=== PATIENT | female | born 1955 | race Caucasian/White ===

== ENCOUNTER → 2017-01-28 | Outpatient (CLI) | payer MEDICARE, OTHER ==
[2017-01-28 10:48] LABS: BUN/CREATININE RATIO 17 (0-10)
== END ==
LOC: LAB 09:09
PROVIDERS: Emergency Medicine
DX: E11.9 Type 2 diabetes mellitus without complications (principal); E78.2 Mixed hyperlipidemia; H65.192 Other acute nonsuppurative otitis media, left ear; J20.9 Acute bronchitis, unspecified; I25.10 Atherosclerotic heart disease of native coronary artery without angina pectoris; Z79.899 Other long term (current) drug therapy
CPT/HCPCS: 36415; 80053; 80061; 82043; 82248; 82570; 83036; 83704

== ENCOUNTER → 2017-02-26 | Outpatient (CLI) | payer MEDICARE, OTHER | LOC: EMI 13:00 | DX: M54.5 Low back pain (principal); M51.36 Other intervertebral disc degeneration, lumbar region; Z91.041 Radiographic dye allergy status; Z79.899 Other long term (current) drug therapy; Z79.82 Long term (current) use of aspirin | CPT/HCPCS: 72148 ==

== ENCOUNTER → 2020-11-17 | Outpatient (CLI) | payer MEDICARE, OTHER ==
[~2020-11-17] MED LIST: ASPIRIN EC81 MG PO; AZOR 10-40 MG1 EACH PO; BASAGLAR K100 UNIT/1 SQ; BENTYL 10MG CAP10 MG PO; BRILINTA60 MG PO; CARAFATE1 GM PO; CYCLOBENZAPRINE10 MG PO; ECOTRIN81 MG PO; FLONASE 0.05% N16 GM; GLUCOTROL 10 MG10 MG PO; METOPROLOL TART25 MG PO; PERCOCET 10-321 EACH PO; POTASSIUM CHLO10 ME1 PO; PREGABALIN200 MG PO; PROAIR HFA8.5 GM INH; PROTONIX40 MG PO; RANEXA500 MG PO; VICTOZA 1818 MG/3 ML SQ; XIFAXAN200 MG PO; XYZAL5 MG PO; ZOFRAN ODT4 MG PO
== END ==
LOC: HEART 5 11-16 08:45
DX: R07.9 Chest pain, unspecified (principal)
CPT/HCPCS: 78452; A9502; J2785

== ENCOUNTER → 2021-02-28 | Outpatient (CLI) | payer MEDICARE, OTHER ==
[2021-02-28 15:43] LABS: HEMOGLOBIN 12.8 gm/dl (12.3-15.3); RED BLOOD COUNT 4.52 M/UL (4.00-5.10); WHITE BLOOD COUNT 9.9 K/UL (4.5-11.0)
[2021-02-28 16:17] LABS: BUN/CREATININE RATIO 14 (0-10)
== END ==
LOC: LAB 15:01
PROVIDERS: Nurse Practitioner
DX: M13.842 Other specified arthritis, left hand (principal); N30.01 Acute cystitis with hematuria; R30.0 Dysuria; R35.0 Frequency of micturition; M19.042 Primary osteoarthritis, left hand
CPT/HCPCS: 73130; 80053; 85025

== ENCOUNTER → 2021-03-16 | Outpatient (CLI) | payer MEDICARE, OTHER ==
[2021-03-16 13:05] LABS: HEMOGLOBIN 13.9 gm/dl (12.3-15.3); RED BLOOD COUNT 4.84 M/UL (4.00-5.10); WHITE BLOOD COUNT 7.3 K/UL (4.5-11.0)
[2021-03-16 13:25] LABS: BUN/CREATININE RATIO 21 (0-10)
[2021-03-17 10:14] LABS: CREATININE, URINE 31.5 mg/dL (Not Estab.)
[2021-03-17 17:09] LABS: CHOLESTEROL, TOTAL 223 mg/dL (100-199); HDL SIZE 8.6 nm (>=9.2); HDL-C 37 mg/dL (>39); HDL-P (TOTAL) 28.2 umol/L (>=30.5); LARGE HDL-P 2.8 umol/L (>=4.8); LARGE VLDL-P 12.2 nmol/L (<=2.7); LDL SIZE 20.6 nm (>20.5); LDL SIZE 20.6 nm (>=20.8); LDL-C 144 mg/dL (0-99); LDL-P 1800 nmol/L (<1000); LP-IR SCORE 84 (<=45); SMALL LDL-P 1049 nmol/L (<=527); TRIGLYCERIDES 233 mg/dL (0-149); VLDL SIZE 53.2 nm (<=46.6)
[2021-03-22 18:12] LABS: 25-HYDROXY, VITAMIN D-2 2.8 ng/mL (.)
== END ==
LOC: LAB 11:17
PROVIDERS: Emergency Medicine
DX: E11.649 Type 2 diabetes mellitus with hypoglycemia without coma (principal); I10 Essential (primary) hypertension; E55.9 Vitamin D deficiency, unspecified; N17.8 Other acute kidney failure; E11.69 Type 2 diabetes mellitus with other specified complication; E11.42 Type 2 diabetes mellitus with diabetic polyneuropathy; R19.7 Diarrhea, unspecified
CPT/HCPCS: 36415; 80053; 80061; 82043; 82306; 82570; 83036; 83704; 84443; 84550; 85025

== ENCOUNTER 2021-05-10 20:00 | Inpatient (IN) | payer MEDICARE, OTHER ==
[~2021-05-10] VITALS: Ht 167.6 cm; Wt 99.8 kg
[~2021-05-10 20:00] MED LIST changes: -ASPIRIN EC81 MG PO; -AZOR 10-40 MG1 EACH PO; -BASAGLAR K100 UNIT/1 SQ; -BRILINTA60 MG PO; -CYCLOBENZAPRINE10 MG PO; -ECOTRIN81 MG PO; -FLONASE 0.05% N16 GM; -GLUCOTROL 10 MG10 MG PO; -METOPROLOL TART25 MG PO; -PERCOCET 10-321 EACH PO; -POTASSIUM CHLO10 ME1 PO; -PREGABALIN200 MG PO; -PROAIR HFA8.5 GM INH; -PROTONIX40 MG PO; -RANEXA500 MG PO; -VICTOZA 1818 MG/3 ML SQ; -XYZAL5 MG PO
[2021-05-10 21:40] LABS: HEMOGLOBIN 14.8 gm/dl (12.3-15.3); RED BLOOD COUNT 5.05 M/UL (4.00-5.10); WHITE BLOOD COUNT 14.1 K/UL (4.5-11.0)
[2021-05-10 22:08] LABS: BUN/CREATININE RATIO 24 (0-10)
[2021-05-11 02:36] LABS: HEMOGLOBIN 14.2 gm/dl (12.3-15.3); RED BLOOD COUNT 4.84 M/UL (4.00-5.10)
[2021-05-11 02:38] LABS: WHITE BLOOD COUNT 18.1 K/UL (4.5-11.0)
[2021-05-11 03:48] LABS: BUN/CREATININE RATIO 24 (0-10)
[2021-05-11] MEDS ORDERED: FLONASE 0.05% N16 GM (11:22)
[2021-05-11] MEDS ORDERED: VICTOZA 1818 MG/3 ML SQ (11:23)
[2021-05-11] MEDS ORDERED: ECOTRIN81 MG PO (11:26)
[2021-05-11] MEDS ORDERED: PROAIR HFA8.5 GM INH (11:26)
[2021-05-11] MEDS ORDERED: XYZAL5 MG PO (11:27)
[2021-05-11] MEDS ORDERED: PROTONIX40 MG PO (11:28)
[2021-05-11] MEDS ORDERED: RANEXA500 MG PO (11:28)
[2021-05-11] MEDS ORDERED: METOPROLOL TART25 MG PO (11:29)
[2021-05-11] MEDS ORDERED: BRILINTA60 MG PO (11:30)
[2021-05-11] MEDS ORDERED: POTASSIUM CHLO10 ME1 PO (11:30)
[2021-05-11] MEDS ORDERED: PERCOCET 10-321 EACH PO (11:31)
[2021-05-11] MEDS ORDERED: GLUCOTROL 10 MG10 MG PO (11:33)
[2021-05-11] MEDS ORDERED: PREGABALIN200 MG PO (11:35)
[2021-05-11] MEDS ORDERED: BASAGLAR K100 UNIT/1 SQ (11:35)
[2021-05-11] MEDS ORDERED: CYCLOBENZAPRINE10 MG PO (11:36)
[2021-05-11] MEDS ORDERED: ASPIRIN EC81 MG PO (11:37)
[2021-05-11] MEDS ORDERED: AZOR 10-40 MG1 EACH PO (11:46)
[2021-05-12 03:11] LABS: HEMOGLOBIN 12.7 gm/dl (12.3-15.3); RED BLOOD COUNT 4.38 M/UL (4.00-5.10); WHITE BLOOD COUNT 14.3 K/UL (4.5-11.0)
[2021-05-12 03:44] LABS: BUN/CREATININE RATIO 40 (0-10)
[2021-05-13 03:37] LABS: HEMOGLOBIN 13.4 gm/dl (12.3-15.3); RED BLOOD COUNT 4.66 M/UL (4.00-5.10); WHITE BLOOD COUNT 17.8 K/UL (4.5-11.0)
[2021-05-13 04:04] LABS: BUN/CREATININE RATIO 36 (0-10)
[2021-05-14 03:20] LABS: HEMOGLOBIN 13.6 gm/dl (12.3-15.3); RED BLOOD COUNT 4.66 M/UL (4.00-5.10); WHITE BLOOD COUNT 18.6 K/UL (4.5-11.0)
[2021-05-14 04:10] LABS: BUN/CREATININE RATIO 26 (0-10)
[2021-05-15 03:01] LABS: HEMOGLOBIN 13.3 gm/dl (12.3-15.3); RED BLOOD COUNT 4.54 M/UL (4.00-5.10); WHITE BLOOD COUNT 18.2 K/UL (4.5-11.0)
[2021-05-15 03:23] LABS: BUN/CREATININE RATIO 23 (0-10)
[2021-05-17 02:43] LABS: HEMOGLOBIN 12.8 gm/dl (12.3-15.3); RED BLOOD COUNT 4.54 M/UL (4.00-5.10); WHITE BLOOD COUNT 15.2 K/UL (4.5-11.0)
[2021-05-17 03:01] LABS: BUN/CREATININE RATIO 28 (0-10)
[2021-05-18 02:41] LABS: HEMOGLOBIN 13.5 gm/dl (12.3-15.3); RED BLOOD COUNT 4.63 M/UL (4.00-5.10); WHITE BLOOD COUNT 14.9 K/UL (4.5-11.0)
[2021-05-18 03:47] LABS: BUN/CREATININE RATIO 28 (0-10)
[2021-05-19 05:17] LABS: RED BLOOD COUNT 4.47 M/UL (4.00-5.10); WHITE BLOOD COUNT 18.2 K/UL (4.5-11.0)
[2021-05-19 06:00] LABS: BUN/CREATININE RATIO 35 (0-10)
[2021-05-20 03:06] LABS: HEMOGLOBIN 13.2 gm/dl (12.3-15.3); RED BLOOD COUNT 4.54 M/UL (4.00-5.10)
[2021-05-20 03:30] LABS: BUN/CREATININE RATIO 37 (0-10)
[2021-05-20 04:23] LABS: WHITE BLOOD COUNT 18.6 K/UL (4.5-11.0)
[2021-05-21 03:56] LABS: HEMOGLOBIN 13.8 gm/dl (12.3-15.3); RED BLOOD COUNT 4.79 M/UL (4.00-5.10)
[2021-05-21 05:52] LABS: BUN/CREATININE RATIO 40 (0-10)
[2021-05-22 02:37] LABS: HEMOGLOBIN 15.2 gm/dl (12.3-15.3); RED BLOOD COUNT 5.14 M/UL (4.00-5.10); WHITE BLOOD COUNT 23.2 K/UL (4.5-11.0)
[2021-05-22 03:02] LABS: BUN/CREATININE RATIO 36 (0-10)
[2021-05-23 04:24] LABS: RED BLOOD COUNT 4.82 M/UL (4.00-5.10); WHITE BLOOD COUNT 19.4 K/UL (4.5-11.0)
[2021-05-23 04:35] LABS: BUN/CREATININE RATIO 37 (0-10)
[2021-05-25 14:29] LABS: ORGANISM ID Not indicated. (.); SPECIMEN SOURCE Urine (.)
[2021-05-26 02:41] LABS: HEMOGLOBIN 13.1 gm/dl (12.3-15.3); RED BLOOD COUNT 4.49 M/UL (4.00-5.10); WHITE BLOOD COUNT 14.7 K/UL (4.5-11.0)
[2021-05-26 03:21] LABS: BUN/CREATININE RATIO 31 (0-10)
[2021-05-27 13:19] LABS: STREPTOCOCCUS PNEUMONIAE AG Positive (Negative)
[2021-05-29 03:56] LABS: HEMOGLOBIN 12.8 gm/dl (12.3-15.3); RED BLOOD COUNT 4.36 M/UL (4.00-5.10); WHITE BLOOD COUNT 13.3 K/UL (4.5-11.0)
[2021-05-29 04:17] LABS: BUN/CREATININE RATIO 34 (0-10)
[2021-05-30 04:16] LABS: HEMOGLOBIN 13.4 gm/dl (12.3-15.3); RED BLOOD COUNT 4.56 M/UL (4.00-5.10); WHITE BLOOD COUNT 15.3 K/UL (4.5-11.0)
[2021-05-30 05:00] LABS: BUN/CREATININE RATIO 33 (0-10)
[2021-05-31 03:23] LABS: HEMOGLOBIN 13.6 gm/dl (12.3-15.3); RED BLOOD COUNT 4.58 M/UL (4.00-5.10); WHITE BLOOD COUNT 14.4 K/UL (4.5-11.0)
[2021-05-31 03:51] LABS: BUN/CREATININE RATIO 42 (0-10)
[2021-06-01 15:46] LABS: HEMOGLOBIN 13.6 gm/dl (12.3-15.3); RED BLOOD COUNT 4.56 M/UL (4.00-5.10); WHITE BLOOD COUNT 14.6 K/UL (4.5-11.0)
[2021-06-01 16:07] LABS: BUN/CREATININE RATIO 44 (0-10)
[2021-06-02 03:14] LABS: HEMOGLOBIN 13.1 gm/dl (12.3-15.3); RED BLOOD COUNT 4.35 M/UL (4.00-5.10); WHITE BLOOD COUNT 13.9 K/UL (4.5-11.0)
[2021-06-02 03:27] LABS: BUN/CREATININE RATIO 40 (0-10)
[2021-06-03 05:52] LABS: HEMOGLOBIN 13.1 gm/dl (12.3-15.3); RED BLOOD COUNT 4.4 M/UL (4.00-5.10); WHITE BLOOD COUNT 12.7 K/UL (4.5-11.0)
[2021-06-03 06:56] LABS: BUN/CREATININE RATIO 49 (0-10)
[2021-06-04 05:26] LABS: HEMOGLOBIN 13.6 gm/dl (12.3-15.3); RED BLOOD COUNT 4.48 M/UL (4.00-5.10)
[2021-06-04 05:48] LABS: BUN/CREATININE RATIO 36 (0-10)
[2021-06-05 07:12] LABS: HEMOGLOBIN 13.7 gm/dl (12.3-15.3); RED BLOOD COUNT 4.51 M/UL (4.00-5.10); WHITE BLOOD COUNT 12.4 K/UL (4.5-11.0)
[2021-06-05 07:33] LABS: BUN/CREATININE RATIO 27 (0-10)
[2021-06-06 08:06] LABS: HEMOGLOBIN 14.1 gm/dl (12.3-15.3); RED BLOOD COUNT 4.81 M/UL (4.00-5.10)
[2021-06-06 08:56] LABS: BUN/CREATININE RATIO 26 (0-10)
[2021-06-07 04:15] LABS: HEMOGLOBIN 12.9 gm/dl (12.3-15.3); RED BLOOD COUNT 4.2 M/UL (4.00-5.10); WHITE BLOOD COUNT 10.8 K/UL (4.5-11.0)
[2021-06-07 04:41] LABS: BUN/CREATININE RATIO 27 (0-10)
[2021-06-08 07:30] LABS: BUN/CREATININE RATIO 19 (0-10)
[2021-06-09 10:24] LABS: HEMOGLOBIN 12.2 gm/dl (12.3-15.3); RED BLOOD COUNT 4.07 M/UL (4.00-5.10); WHITE BLOOD COUNT 8.3 K/UL (4.5-11.0)
[2021-06-09 10:55] LABS: BUN/CREATININE RATIO 27 (0-10)
[2021-06-10 05:49] LABS: HEMOGLOBIN 12.4 gm/dl (12.3-15.3); RED BLOOD COUNT 4.12 M/UL (4.00-5.10); WHITE BLOOD COUNT 7.9 K/UL (4.5-11.0)
[2021-06-10 06:04] LABS: BUN/CREATININE RATIO 25 (0-10)
[2021-06-11 07:39] LABS: HEMOGLOBIN 11.9 gm/dl (12.3-15.3); RED BLOOD COUNT 4.04 M/UL (4.00-5.10)
[2021-06-11 08:01] LABS: BUN/CREATININE RATIO 28 (0-10)
[2021-06-12 09:58] LABS: HEMOGLOBIN 12.4 gm/dl (12.3-15.3); RED BLOOD COUNT 4.15 M/UL (4.00-5.10); WHITE BLOOD COUNT 9.6 K/UL (4.5-11.0)
[2021-06-12 10:57] LABS: BUN/CREATININE RATIO 23 (0-10)
[2021-06-13 15:47] LABS: HEMOGLOBIN 13.1 gm/dl (12.3-15.3); RED BLOOD COUNT 4.41 M/UL (4.00-5.10); WHITE BLOOD COUNT 10.7 K/UL (4.5-11.0)
[2021-06-13 16:13] LABS: BUN/CREATININE RATIO 19 (0-10)
[2021-06-14 04:51] LABS: HEMOGLOBIN 11.4 gm/dl (12.3-15.3); WHITE BLOOD COUNT 10.3 K/UL (4.5-11.0)
[2021-06-14 04:54] LABS: RED BLOOD COUNT 3.95 M/UL (4.00-5.10)
[2021-06-14 05:19] LABS: BUN/CREATININE RATIO 16 (0-10)
[2021-06-15 03:48] LABS: HEMOGLOBIN 11.2 gm/dl (12.3-15.3); RED BLOOD COUNT 3.8 M/UL (4.00-5.10); WHITE BLOOD COUNT 9.1 K/UL (4.5-11.0)
[2021-06-15 04:09] LABS: BUN/CREATININE RATIO 15 (0-10)
[2021-06-16 08:03] LABS: BUN/CREATININE RATIO 17 (0-10)
[2021-06-17 06:06] LABS: BUN/CREATININE RATIO 14 (0-10)
[2021-06-18 06:59] LABS: HEMOGLOBIN 10.7 gm/dl (12.3-15.3); RED BLOOD COUNT 3.81 M/UL (4.00-5.10); WHITE BLOOD COUNT 10.4 K/UL (4.5-11.0)
[2021-06-18 07:34] LABS: BUN/CREATININE RATIO 16 (0-10)
[2021-06-19 06:15] LABS: BUN/CREATININE RATIO 16 (0-10)
[2021-06-24 05:25] LABS: BUN/CREATININE RATIO 21 (0-10)
[2021-06-24 05:54] LABS: HEMOGLOBIN 11.3 gm/dl (12.3-15.3); RED BLOOD COUNT 3.84 M/UL (4.00-5.10); WHITE BLOOD COUNT 10.8 K/UL (4.5-11.0)
[2021-06-26 08:11] LABS: BUN/CREATININE RATIO 19 (0-10)
[2021-06-27 04:57] LABS: BUN/CREATININE RATIO 17 (0-10)
[2021-06-28 06:52] LABS: BUN/CREATININE RATIO 20 (0-10)
[2021-06-29 05:48] LABS: BUN/CREATININE RATIO 14 (0-10)
[2021-06-30 03:01] LABS: BUN/CREATININE RATIO 16 (0-10)
[2021-07-01 08:17] LABS: BUN/CREATININE RATIO 14 (0-10)
[2021-07-02 06:59] LABS: BUN/CREATININE RATIO 14 (0-10)
[2021-07-04 07:40] LABS: BUN/CREATININE RATIO 14 (0-10)
[2021-07-05 05:45] LABS: HEMOGLOBIN 9.8 gm/dl (12.3-15.3); RED BLOOD COUNT 3.45 M/UL (4.00-5.10); WHITE BLOOD COUNT 14.8 K/UL (4.5-11.0)
[2021-07-05 06:03] LABS: BUN/CREATININE RATIO 13 (0-10)
[2021-07-06 04:17] LABS: HEMOGLOBIN 9.7 gm/dl (12.3-15.3); RED BLOOD COUNT 3.47 M/UL (4.00-5.10); WHITE BLOOD COUNT 13.6 K/UL (4.5-11.0)
[2021-07-06 04:36] LABS: BUN/CREATININE RATIO 14 (0-10)
[2021-07-07 05:34] LABS: HEMOGLOBIN 8.9 gm/dl (12.3-15.3); RED BLOOD COUNT 3.18 M/UL (4.00-5.10); WHITE BLOOD COUNT 12.1 K/UL (4.5-11.0)
[2021-07-07 05:53] LABS: BUN/CREATININE RATIO 15 (0-10)
[2021-07-07] MEDS ORDERED: AMOX TR-K CLV1 EAC4 PO (15:26)
== END 2021-07-07 22:15 | disposition home health service (06) | DRG 871 ==
LOC: ER1 20:00 → M/S 23:38 → PROG CARE 23:38 → CDU 23:38 → PROG CARE 05-11 07:14 → CCU 05-26 13:08 → M/S 05-29 13:52
PROVIDERS: Family Medicine; Internal Medicine; Internal Medicine Pulmonary Disease; ADMIT Internal Medicine
PROC: XW033E5 Introduction of Remdesivir Anti-infective into Peripheral Vein, Percutaneous Approach, New Technology Group 5 (ICD-10-PCS; principal; 2021-05-12)
PROC: 3E0333Z Introduction of Anti-inflammatory into Peripheral Vein, Percutaneous Approach (ICD-10-PCS; 2021-05-12)
PROC: 5A0955A Assistance with Respiratory Ventilation, Greater than 96 Consecutive Hours, High Flow/Velocity Cannula (ICD-10-PCS; 2021-05-12)
PROC: 5A09557 Assistance with Respiratory Ventilation, Greater than 96 Consecutive Hours, Continuous Positive Airway Pressure (ICD-10-PCS; 2021-05-17)
PROC: XW033H5 Introduction of Tocilizumab into Peripheral Vein, Percutaneous Approach, New Technology Group 5 (ICD-10-PCS; 2021-05-17)
PROC: 8E0ZXY6 Isolation (ICD-10-PCS; 2021-06-06)
DX: A40.9 Streptococcal sepsis, unspecified (principal); U07.1 COVID-19; J12.82 Pneumonia due to coronavirus disease 2019; J69.0 Pneumonitis due to inhalation of food and vomit; J80 Acute respiratory distress syndrome; J15.4 Pneumonia due to other streptococci; A08.39 Other viral enteritis; J98.11 Atelectasis; E44.0 Moderate protein-calorie malnutrition; E87.4 Mixed disorder of acid-base balance; K12.1 Other forms of stomatitis; L30.8 Other specified dermatitis; B00.1 Herpesviral vesicular dermatitis; I25.10 Atherosclerotic heart disease of native coronary artery without angina pectoris; I10 Essential (primary) hypertension; E78.5 Hyperlipidemia, unspecified; R65.20 Severe sepsis without septic shock; S05.12XA Contusion of eyeball and orbital tissues, left eye, initial encounter; A41.89 Other specified sepsis; K21.9 Gastro-esophageal reflux disease without esophagitis; I95.1 Orthostatic hypotension; E66.9 Obesity, unspecified; E86.0 Dehydration; M79.7 Fibromyalgia; M16.0 Bilateral primary osteoarthritis of hip; E11.65 Type 2 diabetes mellitus with hyperglycemia; T38.0X5A Adverse effect of glucocorticoids and synthetic analogues, initial encounter; L89.322 Pressure ulcer of left buttock, stage 2; L89.312 Pressure ulcer of right buttock, stage 2; E11.40 Type 2 diabetes mellitus with diabetic neuropathy, unspecified; G89.4 Chronic pain syndrome; Z86.73 Personal history of transient ischemic attack (TIA), and cerebral infarction without residual deficits; Z79.82 Long term (current) use of aspirin; Z79.4 Long term (current) use of insulin; Z98.890 Other specified postprocedural states; Z95.1 Presence of aortocoronary bypass graft; Z95.5 Presence of coronary angioplasty implant and graft; Z83.3 Family history of diabetes mellitus; Z90.710 Acquired absence of both cervix and uterus; Z90.49 Acquired absence of other specified parts of digestive tract; Z98.1 Arthrodesis status; Z68.35 Body mass index [BMI] 35.0-35.9, adult; Z88.1 Allergy status to other antibiotic agents; Z91.041 Radiographic dye allergy status
CPT/HCPCS: 0240U; 36415; 36600; 70450; 71045; 71250; 78579; 80048; 80053; 80202; 81001; 82140; 82550; 82553; 82728; 82746; 82803; 82962; 83036; 83605; 83615; 83690; 83735; 83880; 84100; 84484; 85025; 85027; 85379; 85384; 85610; 85730; 86140; 87040; 87070; 87077; 87081; 87086; 87186; 87205; 87278; 87899; 92526; 92610; 93005; 93970; 94640; 94660; 94664; 94760; 96374; 96375; 97110; 97110-GP-CQ; 97162; 97166; 97530; 97530-GP-CQ; 97535; 99285; A6212; A9540; C9113; J0692; J0696; J1100; J1205; J1650; J1940; J2185; J2543; J3370; J7030; J7040; J7070

== ENCOUNTER → 2022-01-31 | Outpatient (CLI) | payer MEDICARE, OTHER ==
[~2022-01-31] MED LIST changes: +AMOX TR-K CLV1 EAC4 PO; +ASPIRIN EC81 MG PO; +AZOR 10-40 MG1 EACH PO; +BASAGLAR K100 UNIT/1 SQ; +BRILINTA60 MG PO; +CYCLOBENZAPRINE10 MG PO; +ECOTRIN81 MG PO; +FLONASE 0.05% N16 GM; +GLUCOTROL 10 MG10 MG PO; +METOPROLOL TART25 MG PO; +PERCOCET 10-321 EACH PO; +POTASSIUM CHLO10 ME1 PO; +PREDNISONE20 MG PO; +PREGABALIN200 MG PO; +PROAIR HFA8.5 GM INH; +PROTONIX40 MG PO; +RANEXA500 MG PO; +VIBRAMYCIN 100100 MG GT; +VICTOZA 1818 MG/3 ML SQ; +XYZAL5 MG PO
[2022-01-31 09:59] LABS: HEMOGLOBIN 8.7 gm/dl (12.3-15.3); RED BLOOD COUNT 4.72 M/UL (4.00-5.10); WHITE BLOOD COUNT 12.3 K/UL (4.5-11.0)
[2022-01-31 10:56] LABS: BUN/CREATININE RATIO 18 (0-10)
[2022-02-01 10:14] LABS: CREATININE, URINE 18.7 mg/dL (Not Estab.); MICROALB/CREAT RATIO <16 (0-29)
== END ==
LOC: LAB 09:22
PROVIDERS: Emergency Medicine
DX: I25.10 Atherosclerotic heart disease of native coronary artery without angina pectoris (principal); I10 Essential (primary) hypertension; E78.2 Mixed hyperlipidemia; E11.65 Type 2 diabetes mellitus with hyperglycemia; J20.9 Acute bronchitis, unspecified
CPT/HCPCS: 36415; 80053; 80061; 82043; 82570; 83036; 83704; 84443; 84550; 85025

== ENCOUNTER 2022-02-10 16:41 | Emergency (ER) | payer MEDICARE, OTHER ==
[2022-02-10 18:50] LABS: HEMOGLOBIN 9.4 gm/dl (12.3-15.3); RED BLOOD COUNT 5.08 M/UL (4.00-5.10); WHITE BLOOD COUNT 25.4 K/UL (4.5-11.0)
[2022-02-10 19:08] LABS: BUN/CREATININE RATIO 11 (0-10)
[2022-02-10] MEDS ORDERED: TAMIFLU75 MG PO (20:56)
== END 2022-02-10 21:05 | disposition left against medical advice (07) ==
LOC: ER1 16:41
DX: J10.1 Influenza due to other identified influenza virus with other respiratory manifestations (principal); Z20.822 Contact with and (suspected) exposure to COVID-19; E11.9 Type 2 diabetes mellitus without complications; I11.9 Hypertensive heart disease without heart failure; J44.9 Chronic obstructive pulmonary disease, unspecified; Z95.1 Presence of aortocoronary bypass graft; Z88.1 Allergy status to other antibiotic agents; Z91.041 Radiographic dye allergy status
CPT/HCPCS: 0240U; 71045; 80053; 83605; 85025; 93005; 99283

== ENCOUNTER → 2022-03-21 | Outpatient (CLI) | payer MEDICARE, OTHER ==
[~2022-03-21] MED LIST changes: +TAMIFLU75 MG PO
== END ==
LOC: HEART 5 14:33
DX: R06.02 Shortness of breath (principal); U09.9 Post COVID-19 condition, unspecified; R91.8 Other nonspecific abnormal finding of lung field; R94.2 Abnormal results of pulmonary function studies
CPT/HCPCS: 71046; 94060; 94729

== ENCOUNTER → 2022-05-17 | Outpatient (CLI) | payer MEDICARE, OTHER | LOC: HEART 5 05-03 08:45 | DX: I25.119 Atherosclerotic heart disease of native coronary artery with unspecified angina pectoris (principal); R06.02 Shortness of breath; I45.10 Unspecified right bundle-branch block; R00.1 Bradycardia, unspecified | CPT/HCPCS: 78452; A9502; J2785 ==